=== PATIENT | male | born 1965 ===

== ENCOUNTER 2021-04-04 05:43 | Inpatient (IN) | payer OTHER ==
[~2021-04-04] VITALS: Ht 170.2 cm; Wt 91.8 kg
[~2021-04-04 05:43] MED LIST: ATOR40TA78 PO; LISI1TAB20 PO
[2021-04-04] MEDS ORDERED: CHLORHEXIDINE 15 ML UDC PO ONE (06:30)
[2021-04-04] MEDS ORDERED: LACTATED RINGERS 1,000 ML IV SCH (06:30)
[2021-04-04] MEDS ORDERED: EPINEPHRINE 1 MG/ML, 1ML ONE (07:02)
[2021-04-04] MEDS ORDERED: BUPIVACAINE/PF 0.25% ONE (07:02)
[2021-04-04] MEDS ORDERED: OPIUM/BELLADONNA SUPP.RECT 16.2-60 MG ONE (07:02)
[2021-04-04] MEDS ORDERED: FENTANYL PF 250 MCG/5ML ONE (07:18)
[2021-04-04] MEDS ORDERED: MIDAZOLAM 1 MG/ML, 2ML ONE (07:18)
[2021-04-04] MEDS ORDERED: PROPOFOL 10 MG/ML, 20ML ONE (09:59)
[2021-04-04] MEDS ORDERED: CEFAZOLIN 1,000 MG ONE (09:59)
[2021-04-04] MEDS ORDERED: DEXAMETHASONE 4 MG/ML, 1ML ONE (09:59)
[2021-04-04] MEDS ORDERED: SUCCINYLCHOLINE 20 MG/ML, 10ML ONE (09:59)
[2021-04-04] MEDS ORDERED: ROCURONIUM 10MG/ML,5ML ONE (09:59)
[2021-04-04] MEDS ORDERED: ONDANSETRON 2MG/ML, 2ML ONE (09:59)
[2021-04-04] MEDS ORDERED: NEOSTIGMINE 1 MG/ML, 10ML ONE (09:59)
[2021-04-04] MEDS ORDERED: GLYCOPYRROLATE 0.2MG/1ML, 5ML ONE (09:59)
[2021-04-04] MEDS ORDERED: HYDROmorphone 1 MG/ML, 1ML INJ ONE (10:00)
[2021-04-04] MEDS ORDERED: METHOCARBAMOL 1,000 MG in DEXTROSE 5% 100 ML IV PRN (11:00)
[2021-04-04] MEDS ORDERED: hydrALAzine 20 MG/ML, 1ML IV PRN (11:00)
[2021-04-04] MEDS ORDERED: ACETAMINOPHEN 325 MG TABLET PO PRN (11:00)
[2021-04-04] MEDS ORDERED: PROMETHAZINE 25 MG SUPP PR PRN (11:00)
[2021-04-04] MEDS ORDERED: FENTANYL PF 100 MCG/2ML IV PRN (11:00)
[2021-04-04] MEDS ORDERED: PROMETHAZINE 25 MG/ML, 1ML IVPush PRN (11:00)
[2021-04-04] MEDS ORDERED: HALOPERIDOL 5 MG/ML IV PRN (11:00)
[2021-04-04] MEDS ORDERED: MEPERIDINE/PF 25MG/0.5ML IVPush PRN (11:00)
[2021-04-04] MEDS ORDERED: LABETALOL 5MG/ML, 20ML IV PRN (11:00)
[2021-04-04] MEDS ORDERED: LORazepam 2 MG/ML, 1ML IVPush PRN (11:00)
[2021-04-04] MEDS ORDERED: OXYcodone 5 MG/5 ML ORAL.SOL UDC PO PRN (11:00)
[2021-04-04] MEDS ORDERED: ONDANSETRON 2MG/ML, 2ML IVPush PRN (11:00)
[2021-04-04] MEDS ORDERED: HYDROmorphone 1 MG/ML, 1ML INJ IVPush PRN (11:00)
[2021-04-04] MEDS ORDERED: OXYcodone 5 MG/5 ML ORAL.SOL UDC ONE (11:48)
[2021-04-04] MEDS ORDERED: FENTANYL PF 100 MCG/2ML ONE (11:48)
[2021-04-04 12:20] VITALS: BP 115/78
[2021-04-04] MEDS ORDERED: ONDANSETRON 2MG/ML, 2ML IV PRN (13:00)
[2021-04-04] MEDS ORDERED: OPIUM/BELLADONNA SUPP.RECT 16.2-60 MG PR PRN (13:00)
[2021-04-04] MEDS: ACETAMINOPHEN 500 MG TABLET PO SCH ×2 (13:09→19:47)
[2021-04-04] MEDS: D5%-0.45NACL+KCL 20MEQ 1,000 ML IV SCH ×2 (13:10→19:47)
[2021-04-04] MEDS: morphine SULFATE 10 MG/ML, 1ML IV PRN ×3 (13:39→22:08)
[2021-04-04] MEDS: OXYcodone IR 5MG TABLET PO PRN ×2 (15:38→19:48)
[2021-04-04 19:56] VITALS: BP 104/63
[2021-04-05] MEDS: OXYcodone IR 5MG TABLET PO PRN ×4 (00:15→12:07)
[2021-04-05 00:35] VITALS: BP 98/65
[2021-04-05] MEDS: ACETAMINOPHEN 500 MG TABLET PO SCH ×2 (02:32→08:02)
[2021-04-05] MEDS: D5%-0.45NACL+KCL 20MEQ 1,000 ML IV SCH ×2 (02:32→10:09)
[2021-04-05 04:09] VITALS: BP 98/62
[2021-04-05 05:02] LABS: ANION GAP 4 mmol/L (5-15); CHLORIDE 109 mmol/L (98-107)
[2021-04-05 05:05] LABS: CREATININE 0.81 mg/dL (0.7-1.3)
[2021-04-05 07:59] VITALS: BP 119/73
[2021-04-05] MEDS ORDERED: ENOXAPARIN 40 MG/0.4 ML SQ SCH (08:00)
[2021-04-05] MEDS ORDERED: LISINOPRIL 20 MG TABLET PO SCH (09:00)
[2021-04-05] MEDS ORDERED: HYDROCHLOROTHIAZIDE 25 MG TABLET PO SCH (09:00)
[2021-04-05 11:36] LABS: BASOPHILS % (AUTO) 0 % (0-1); EOSINOPHILS % (AUTO) 0 % (1-7); LYMPHOCYTES % (AUTO) 27 % (22-44); MEAN CORPUSCULAR HEMOGLOBIN 32.6 pg (27.5-34.5); MEAN CORPUSCULAR HGB CONC 34.6 g/dL (33.2-36.2); MEAN PLATELET VOLUME 7.8 fL (7.4-10.4); MONOCYTES % (AUTO) 8 % (2-9); NEUTROPHILS % (AUTO) 65 % (42-75); PLATELET COUNT 187 x10^3/uL (130-400); RED BLOOD COUNT 3.67 x10^6/uL (4.38-5.82); RED CELL DISTRIBUTION WIDTH 13.4 % (9.4-14.8)
[2021-04-05 11:37] LABS: MD NO
[2021-04-05] MEDS ORDERED: OXYC5TAB98 PO (12:26)
[2021-04-05] MEDS ORDERED: OXYB5TAB10 PO (12:26)
[2021-04-05] MEDS ORDERED: OXYBUTYNIN CHLORIDE 5 MG TABLET ONE (12:56)
[2021-04-05 13:20] VITALS: BP 120/68
[2021-04-05] MEDS ORDERED: OXYBUTYNIN CHLORIDE 5 MG TABLET PO SCH (16:00)
== END 2021-04-05 13:55 | disposition home or self-care (01) | DRG 708 ==
LOC: OUT 05:43 → 4NE 12:14 → OUT 21:49 → DCLOUNGE 04-05 13:43
PROVIDERS: ADMIT Urology; ATTEND Urology
PROC: 07BC4ZZ Excision of Pelvis Lymphatic, Percutaneous Endoscopic Approach (ICD-10-PCS; 2021-04-04)
PROC: 8E0W4CZ Robotic Assisted Procedure of Trunk Region, Percutaneous Endoscopic Approach (ICD-10-PCS; 2021-04-04)
PROC: 0VT04ZZ Resection of Prostate, Percutaneous Endoscopic Approach (ICD-10-PCS; principal; 2021-04-04 07:30)
DX: C61 Malignant neoplasm of prostate (principal); Z20.822 Contact with and (suspected) exposure to COVID-19; K66.0 Peritoneal adhesions (postprocedural) (postinfection)
CPT/HCPCS: 36415; 80048; 85014; 85018; 85025; 86850; 86900; 88305; 88309; 93005; C1729; G0378; J0171; J0690; J1100; J1170; J2250; J2405; J2704; J2710; J3010; U0005; C1760; J0330; J2270; J2800; J3480; J7120; U0003

== ENCOUNTER → 2021-04-11 | Outpatient (CLI) | payer OTHER ==
[~2021-04-11] MED LIST changes: +OXYB5TAB10 PO; +OXYC5TAB98 PO
== END | disposition home or self-care (01) ==
LOC: RAD 12:26
PROVIDERS: ATTEND Urology
DX: C61 Malignant neoplasm of prostate (principal)
CPT/HCPCS: 51600; 74430; Q9958